=== PATIENT | female | born 1970 | race Caucasian/White ===

== ENCOUNTER 2017-10-01 20:11 | Emergency (ER) | payer MEDICAID ==
[2017-10-01] MEDS: DEXAMETHASONE 10 MG/ML 1 ML INJ IM (22:03)
[2017-10-01] MEDS: KETOROLAC 60 MG INJ IM (22:04)
== END 2017-10-01 23:54 | disposition home or self-care (01) ==
LOC: FTE 20:11
DX: S39.012A Strain of muscle, fascia and tendon of lower back, initial encounter (principal); F17.210 Nicotine dependence, cigarettes, uncomplicated; W19.XXXA Unspecified fall, initial encounter; Y92.9 Unspecified place or not applicable
CPT/HCPCS: 72131; 96372; 99285-25

== ENCOUNTER 2019-03-08 16:41 | Emergency (ER) | payer MEDICAID ==
[2019-03-08] MEDS: ACETAMINOPHEN 500 MG TAB PO (19:35)
[2019-03-08] MEDS: HYDROCODONE/APAP (5/325) TAB PO (19:35)
[2019-03-08] MEDS: CLINDAMYCIN 900 MG (PMX) 50 ML IVPB ×2 (19:45→20:08)
[2019-03-08] MEDS: SODIUM CHLORIDE 0.9% 1L BAG IV* (19:45)
[2019-03-08] MEDS ORDERED: SOD CHLORIDE 0.9% 100 ML (21:03)
[2019-03-08] MEDS ORDERED: IOHEXOL 300MG/ML 150 ML BTL (21:03)
[2019-03-08] MEDS ORDERED: IOHEXOL 300MG/ML 30 ML BTL (21:03)
== END 2019-03-08 23:21 | disposition left against medical advice (07) ==
LOC: FTE 16:41
DX: K04.7 Periapical abscess without sinus (principal); R22.1 Localized swelling, mass and lump, neck; Z87.891 Personal history of nicotine dependence
CPT/HCPCS: 70486; 70490; 71045; 80053; 81001; 83605; 84484; 85025; 85610; 85730; 87040-91; 93005; 96365; 96366; 99285-25